=== PATIENT | male | born 1955 | race Caucasian/White ===

== ENCOUNTER 2022-06-15 12:34 | Inpatient (IN) | payer MEDICARE, SELFPAY ==
[2022-06-15 12:36] VITALS: BP 130/88; PULSE 97; RESP 22; TEMP 36.2; O2SAT 98; BMI 24.0
--- NOTE | 2022-06-15 13:20 | EDS_ITS ---
HPI History of Present Illness Chief Complaint: Substance Abuse Informant: patient and friend Narrative Narrative: Here for alcohol assistance. He is here with peer from the [employer] program. Reports he been drinking alcohol since he is 13 years old. Current alcohol of choice is whiskey however states he will drink anything get his hands on. He went through [employer] 6 weeks ago was there for 2 weeks. He relapsed since then. Last drink was this morning. Wakes up with morning tremors resolved with alcohol. Denies any withdrawal seizures. Reports 2 weeks ago had vomiting over the weekend had blood in it resolved since then. Denies abdominal pain. Denies bloody stools. Also reports intermittent meth use last used 2 days ago, states did not have a problem with meth. Denies suicidal homicidal ideations. Prior similar symptoms: Yes PFSH PFSH Medical History Alcoholism Atrial fibrillation COPD (chronic obstructive pulmonary disease) Hypertension Myocardial infarct Sleep apnea Smoker Home Medications aspirin 81 mg tablet,delayed release 81 mg PO DAILY 06/15/22 [History Last Taken Unknown] atorvastatin 10 mg tablet 10 mg PO DAILY cholesterol 06/15/22 [History Last Taken Unknown] carvedilol 6.25 mg tablet 6.25 mg PO BID 06/15/22 [History Last Taken Unknown] diltiazem HCl 120 mg tablet 120 mg PO DAILY 06/15/22 [History Last Taken Unknown] losartan 25 mg tablet 25 mg PO DAILY 06/15/22 [History Last Taken Unknown] pantoprazole 40 mg tablet,delayed release 40 mg PO BID GERD 06/15/22 [History Last Taken Unknown] sucralfate 1 gram tablet 1 g PO ACHS 06/15/22 [History Last Taken Unknown] thiamine HCl (vitamin B1) 100 mg tablet (Vitamin B-1) 100 mg PO DAILY 06/15/22 [History Last Taken Unknown] topiramate 25 mg tablet 75 mg PO BID 06/15/22 [History Last Taken Unknown] Allergy/AdvReac Type Severity Reaction Status Date / Time No Known Allergies Allergy Verified 06/15/22 12:35 Family History (Updated 06/15/22 @ 13:[address] Jeronimo Zacarias DO) Other Alcoholism Surgical History (Updated 06/15/22 @ 15:28 by Melida Gaytan) H/O exploratory laparotomy History of cholecystectomy History of shoulder surgery Social History (Updated 06/15/22 @ 13:[address] Jeronimo Zacarias DO) Smoking Status: Heavy Smoker (>10/day) alcohol intake: current substance use type: methamphetamine ROS ROS ED Constitutional Constitutional ED: Denies chills, fever(s) or sweats Eyes Eyes: Denies change in vision ENT ENT ED: Denies dysphagia or sore throat Cardiovascular Cardiovascular: Denies chest pain, leg edema, palpitations or racing heartbeat Respiratory/Chest Respiratory/Chest: Denies cough, dyspnea or dyspnea on exertion Gastrointestinal Gastrointestinal: Reports nausea; Denies abdominal pain, diarrhea or vomiting Genitourinary Genitourinary ED: Denies dysuria, hematuria or urinary frequency Musculoskeletal Musculoskeletal: Denies back pain, extremity pain or neck pain Integumentary Denies rash or wounds Neurologic Neurologic: Denies headache(s), paresthesias or weakness Psychiatric Psychiatric: Denies suicidal ideation or suicidal thoughts EXAM Physical Exam Const Vital Signs: 06/15/22 12:36 Temperature 97.1 F L Temperature Source Temporal Pulse Rate 97 Respiratory Rate 22 H Blood Pressure 130/88 H Blood Pressure Mean 102 Pulse Ox 98 Oxygen Delivery Method Room Air Constitutional Narrative: Nontoxic. General Appearance ED: NAD HEENT Reports moist mucous membranes normocephalic and atraumatic Eyes PERRL, EOMs intact bilaterally and conjunctivae normal General Eye ED: Yes normal appearance of both eyes Neck no lymphadenopathy and supple General: Negative for tenderness Chest Wall Chest: Negative for tenderness Resp normal respiratory effort and normal air movement Effort and Inspection: symmetric chest movement; Negative for respiratory distress Cardio regular rate, regular rhythm and no murmurs Peripheral Pulses: pulses 2+ throughout GI normal to inspection, nondistended, normoactive bowel sounds and non-tender Palpation: Negative for guarding or rebound tenderness present Back/Spine no CVA tenderness and no thoracic nor lumbar tenderness Extremity normal to inspection General Extremety ED: Negative for edema or tenderness General Extremity: Negative for edema Neuro oriented x3 and no sensory deficits noted Sensorium / Orientation: awake and alert Skin no rashes or lesions noted and no wounds MDM MDM MDM Narrative Medical decision making narrative: Patient nontoxic vital signs stable here for alcohol assistance. Current symptoms is nausea there is no tremors. We will get medical clearance labs, will give IV Zofran. This is pending. I spoke with hospitalist Dr. Zacarias for admission for alcohol assistance. 1500: Nursing with difficulty obtaining IV access. Lab was able to draw blood. I placed an ultrasound guided 20-gauge IV left upper arm. Patient be admitted for further management. Nicotine patch was ordered. Lab Data Attestation: I reviewed the patient's lab results. Discharge Plan Dx/Rx/DC Orders Clinical Impression: Alcohol dependence, Nausea, History of methadone use Disposition Disposition: Acute Care [facility] Discharge Date/Time: 06/15/22 15:13
--- NOTE | 2022-06-15 13:36 | HP.PCM.HOS_ITS ---
HPI - General General Date of Service: 06/15/22 Chief Complaint: alcohol withdrawal HPI Narrative MOE GRADY, is a 67 M who presents seeing treatment for acute alcohol drawl. Patient's last drink was this morning. Since his last drink, he has been having some nausea. Patient has been drinking since he was 13 years old. He drinks at least a bottle of liquor per day sometimes more think it the money to pay for it. Patient, about a month ago, was involved in a program in [facility] called [facility]. Patient was in multi stages of the program and was in the stabilization program where he either left on his own or graduated from. Immediately leaving, however, he resumed drinking alcohol again. Patient is here with the liaison from [facility], and feel that given patient's history and amount of alcohol that he drinks that stabilization would be most appropriate before he can get involved in a program with them again. [facility] Medical History (Updated 06/15/22 @ 13:[address] Jeronimo Zacarias DO) Alcoholism Allergy/AdvReac Type Severity Reaction Status Date / Time No Known Allergies Allergy Verified 06/15/22 12:35 Family History (Updated 06/15/22 @ 13:[address] Jeronimo Zacarias DO) Other Alcoholism Surgical History (Updated 06/15/22 @ 13:[address] Jeronimo Zacarias DO) H/O exploratory laparotomy Social History (Updated 06/15/22 @ 13:[address] Jeronimo Zacarias DO) Smoking Status: Heavy Smoker (>10/day) alcohol intake: current substance use type: methamphetamine ROS ROS Narrative Patient states that he has lost weight over time. Does have a chronic ventral hernia related with his exploratory laparotomy in the past. Today it was 210 pounds at 1 point and now is down to 82 pounds. All review of systems were negative except as mentioned above in the history of present illness and the other review of systems. Vital Signs Vital Signs Vital Signs: 06/15/22 12:36 Temperature 36.2 C L Temperature Source Temporal Pulse Rate 97 Respiratory Rate 22 H Blood Pressure 130/88 H Blood Pressure Mean 102 Pulse Ox 98 Oxygen Delivery Method Room Air Weight Weight: 82.5 kg Body Mass Index (BMI) 24.0 Physical Exam Const alert and no apparent distress Constitutional Narrative: Appears much older than stated age. Disheveled appearance. HEENT normocephalic and head/scalp atraumatic Resp normal respiratory effort, no retractions, no use of accessory muscles and clear to auscultation bilaterally Cardio regular rate, regular rhythm, S1 normal heart sound and S2 normal heart sound GI normal to inspection, nondistended, normoactive bowel sounds, soft to palpation, non-tender and non-distended GI Narrative: Ventral hernia that is easily reducible Extremity normal to inspection Neuro oriented x3 Psych affect normal Assessment & Plan Assessment/Plan (1) Alcohol withdrawal: QUALIFIERS: Complication of substance-induced condition: uncomplicated Qualified Code(s): F10.930 - Alcohol use, unspecified with withdrawal, uncomplicated PLAN: I concern for further deterioration such as delirium tremens or alcohol withdrawal seizure. Continue with thiamine and folate. Phenobarbital taper Addiction medicine to see Tentative plan is for the patient to go to [facility] program in [place]. I spoke to the liaison at bedside and he is unsure if there is any opening in the residential program but it may be some intensive outpatient counseling the patient may require care. Will wait on our addiction liaison to further facilitate. (2) Protein calorie malnutrition: PLAN: Patient states that he weighs 82 pounds. I think he mistook the information of being 82.5 kg as pounds. Patient currently does not appear to be that gaunt. Though he is thin and malnourished in appearance. Will consult nutrition for further input. Patient does have a very chronically medically ill appearance this is most likely due to his chronic alcohol and tobacco abuse. We will check a TSH. PLAN: Plan VTE prophylaxis: Given the patient's chronically ill appearance, will place him enoxaparin for VTE prophylaxis. Charges/Coding Visit Charges Inpatient E&M: 06569 Init Hosp L2
--- NOTE | 2022-06-15 14:10 | CM.ED ---
Social Work Consult: Substance Abuse Referral source: Self referral due to reason for ED visit. This social welfare research worker met with patient in room. Introduced self and social welfare research worker role. Patient agreeable to speak with this social welfare research worker. Patient peer support from Thelma, Cory Davila ([phone]) present. Patient agreeable to speak with this social welfare research worker with Cory present. Patient reports to be seeking medical management of withdrawal symptoms. Patient with history of going through detox with [facility] but was referred to [facility] for medical management of withdrawal symptoms as patient required medical treatment last attempt to detox. Patient plans to follow up with Thelma at discharge and reports that Cory will be patient transportation. Patient reports substance of choice as alcohol and meth. Patient verbally agreeing to [facility] contract. Active support and listening provided. Telephone call to Addiction Therapist, Sabine. This social welfare research worker updated Sabine on above information and patient admission to acute care unit. Tez HEIN, HASMUKH-S
[2022-06-15] MEDS: Ondansetron ODT 4 MG Tablet PO (14:27)
[2022-06-15 14:54] LABS: Absolute Lymphocyte Count 1.27 X10^3/uL (0.83-4.51); Absolute Neutrophil Count 2.8 X10^3/uL (2.0-7.7); Basophil# 0.06 X10^3/uL; Basophil% 1.2 % (0-1); Eosinophil# 0.16 X10^3/uL; Eosinophils% 3.2 % (0-5); Hematocrit 41.4 % (40-54); Hemoglobin 13.6 g/dL (13.0-16.5); Lymphocyte # 1.27 X10^3/ul (0.83-4.51); Lymphocyte % 25.5 % (19-41); Mean Corp Hgb Conc 32.9 g/dL (32-36); Mean Corpuscular Hgb 31.3 pg (27.0-32.0); Mean Corpuscular Volume 95.4 fL (80-94); Mean Platelet Vol. 9.8 fl (6.2-12.0); Monocyte% 14.1 % (0-10); NRBC Flagged by Analyzer 0 % (0-5); Neutrophil # 2.77 X10^3/uL (2.7-7.7); Neutrophil % 55.6 % (47-70); Platelet Count 195 K/mm3 (150-450); RBC Distribution Width CV 15.3 % (11.6-14.6); RBC Distribution Width SD 53.3 fl (35.1-43.9); Red Blood Count 4.34 M/mm3 (4.6-6.2)
[2022-06-15 15:05] LABS: Anion Gap 9 (5-15); BUN 10 mg/dL (7-18); BUN/Creat Ratio 9.4 RATIO (10-20); Calcium,Total 8.3 mg/dL (8.5-10.1); Chloride 108 mmol/L (98-107); Creatinine, Serum 1.06 mg/dL (0.70-1.30); EST Glomerular Filtration Rate 75 mL/min (>60); Est Glom Filt Rate - Afr Amer 90 mL/min (>60); Estimated Creatinine Clearance 78.52 ml/min; Glucose 72 mg/dL (74-106); Potassium 3.8 mmol/L (3.5-5.1); Sodium Level 141 mmol/L (136-145)
[2022-06-15 15:06] VITALS: BP 156/75; PULSE 63; RESP 18; TEMP 36.1; O2SAT 100
[2022-06-15 15:09] VITALS: BP 156/75; PULSE 70; RESP 18; TEMP 36.1; O2SAT 99
[2022-06-15 15:21] LABS: Thyroid Stim Hormone (TSH) 0.46 uIU/mL (0.358-3.74)
[2022-06-15 15:30] VITALS: BP 164/71; PULSE 75; RESP 20; TEMP 36.2; O2SAT 100; BMI 22.4
[2022-06-15 15:41] LABS: Amphetamine Urine VISTA NEGATIVE (<1000 ng/mL); Barbiturate Urine VISTA POSITIVE (< 200 ng/mL); Benzodiazepine Urine VISTA NEGATIVE (< 200 ng/mL); Cocaine Urine VISTA NEGATIVE (< 300 ng/mL); Ecstacy Urine VISTA NEGATIVE (< 500 ng/mL); Methadone Urine VISTA NEGATIVE (< 300 ng/mL); PCP Urine VISTA NEGATIVE (< 25 ng/mL); THC Urine VISTA NEGATIVE (< 50 ng/mL); Vista UDS pH Range 4
[2022-06-15 16:18] LABS: AST(SGOT) 15 U/L (15-37); Alanine Aminotransfer ALT/SGPT 22 U/L (16-61); Albumin, Serum 3.1 g/dL (3.2-5.0); Alkaline Phosphatase 92 U/L (45-117); Bilirubin, Direct 0.22 mg/dL (0.00-0.30); Globulin 3.3 g/dL (2.2-4.2); Protein, Total 6.4 g/dL (6.4-8.2)
[2022-06-15] MEDS: Phenobarbital 32.4 MG Tablet 64.8 MG PO ×2 (16:19→20:27)
[2022-06-15] MEDS: Gabapentin 300 MG Capsule PO (16:20)
[2022-06-15] MEDS: Ibuprofen 600 MG Tablet PO (16:20)
[2022-06-15 16:22] VITALS: O2SAT 99
[2022-06-15] MEDS: 0.9% Saline Lock 10 ML Syringe IV (17:59)
[2022-06-15 20:24] VITALS: BP 135/64; PULSE 91; RESP 18; TEMP 36.8; O2SAT 98
[2022-06-16] MEDS: Phenobarbital 32.4 MG Tablet 64.8 MG PO ×7 (00:54→23:42)
[2022-06-16] MEDS: Acetaminophen 500 MG Tablet PO ×3 (00:54→23:42)
[2022-06-16] MEDS: hydrOXYzine PAM 25 MG Capsule 50 MG PO ×3 (00:54→20:24)
[2022-06-16 00:56] VITALS: BP 142/78; PULSE 87; RESP 18; TEMP 36.8; O2SAT 96
[2022-06-16] MEDS: traZODone 100 MG Tablet PO ×2 (01:01→20:24)
[2022-06-16 04:57] VITALS: BP 127/52; PULSE 79; RESP 18; TEMP 36.8; O2SAT 96
[2022-06-16 08:58] VITALS: BP 128/54; PULSE 70; RESP 16; TEMP 36.5; O2SAT 98
[2022-06-16] MEDS: Enoxaparin 40 MG/0.4 ML Syringe SC (09:08)
[2022-06-16] MEDS: Thiamine Hydrochloride 100 MG Tablet PO (09:08)
[2022-06-16] MEDS: Folic Acid 1 MG Tablet PO (09:08)
--- NOTE | 2022-06-16 12:06 | ADDICTION ---
This typewriter mechanic met with PT to conduct ASAM, MSE, AUDIT, DUDIT assessments and to plan for d/c. PT A+Ox4 and participated actively. All assessments completed and placed in PT's chart. PT plans to f/u with [employer] [facility] for follow-up Outpatient treatment services. [facility] will provide transportation post d/c from [facility]. There is a number in his chart.
[2022-06-16 15:00] VITALS: BP 116/78; PULSE 72; RESP 18; TEMP 36.4; O2SAT 94
[2022-06-16] MEDS: Gabapentin 300 MG Capsule PO (16:31)
[2022-06-16] MEDS: Ibuprofen 600 MG Tablet PO (16:44)
--- NOTE | 2022-06-16 19:03 | PCM.PN.HOSP ---
Subjective Subjective Patient was seen and examined today, he was seen by addiction director of social services today and is agreed to go into a detox program at the time of discharge from the hospital. Patient does not complain of excessive tremor or nervousness today, he states that he has a chronic medical problem (hypertension) but he has not taken any medication for this in quite a while. I noticed today that the patient's blood pressure is in the normal range and the patient is not receiving any blood pressure medication at this time. I have elected not to start any antihypertensives on him at this time, I will reevaluate him tomorrow. Objective Data Objective Data Vital Signs: Vital Signs Temp Pulse Resp BP Pulse Ox O2 Del Method 97.5 F L 72 18 116/78 94 Room Air 06/16/22 15:00 06/16/22 15:00 06/16/22 15:00 06/16/22 15:00 06/16/22 15:00 06/16/22 15:00 Oxygen Delivery Method Room Air Weight: 77.3 kg Body Mass Index (BMI) 22.4 Intake & Output: Intake and Output for Last 24 Hours 06/14/22 06/15/22 06/16/22 23:59 23:59 23:59 Intake Total 480 / 480 880 / 880 Balance 480 / 480 880 / 880 Medical Nutrition Assessment Dietitian: Malnutrition Criteria Met Start: 06/15/22 17:46 Freq: Status: Active Protocol: Document 06/15/22 17:47 RMA (Rec: 06/15/22 17:47 RMA [id number]) Nutrition Malnutrition Evidence of Malnutrition Exists Yes Malnutrition (severe): Social/Behavioral/ Environmental Evidenced By Suboptimal Energy Intake ( Severe),Weight Loss (Severe) Clinical Problem Chronic Disease or Condition Related Malnutrition Etiology Severe protein-calorie malnutrition in the context of social circumstance related to alcohol abuse and poor PO/ nutrient density Signs/Symptoms as evidenced by 6% wt loss x past 1 month and intake meeting less than 50% estimated nutrition needs Status Active Problem Recommendation Dietitian Recommendations/Changes Continue regular diet with 3 snacks per day as ordered. Will add ensure compact TID w/ meals. Additional ONS as needed once intake established with meals. Lab / Micro Data Result Diagrams: 06/15/22 14:38 06/15/22 14:38 Physical Exam Const alert, oriented x3, no apparent distress and healthy appearing General Appearance: cooperative, well kempt and well developed Orientation / Consciousness: awake, oriented to person, oriented to place and oriented to time HEENT normocephalic and moist oral mucous membranes Eyes PERRL, EOMs intact bilaterally and conjunctivae normal Neck supple, no JVD, thyroid normal and no carotid bruits General: trachea midline Resp normal respiratory effort and clear to auscultation bilaterally Auscultation: Negative for rales, rhonchi or wheezes Cardio regular rate, regular rhythm, no murmurs, no rub and no gallops GI normal to inspection, nondistended, normoactive bowel sounds, soft to palpation, non-tender and non-distended Extremity no clubbing, cyanosis or edema Skin no rashes or lesions noted General Skin Exam: no breakdown Neuro oriented x3, CN's II-XII intact bilaterally, no focal motor deficits and no sensory deficits noted Sensorium / Orientation: awake and alert Speech: speech normal Psych affect normal Assessment & Plan Assessment/Plan (1) Alcohol dependence: PLAN: Plan #1 acute alcohol withdrawal-patient does not appear to be symptomatic at this time, he is not tremulous and he does not appear anxious. Continue phenobarb taper at this time, patient will do an outpatient detox program when he is released from the hospital. #2 essential hypertension-patient's blood pressure medications have been held at this time, he is not taking them chronically at home according to him, I will observe his blood pressure while he is hospitalized here and place him back on blood pressure medicine if needed. #3 chronic alcoholism-complicates care, management, recovery, and prognosis #4 history of hyperlipidemia-patient takes no medications now for hyperlipidemia, he will need to follow-up with his family physician after his discharge from the hospital. Charges/Coding Visit Charges Inpatient E&M: 40166 Subs Hosp L2
[2022-06-16 20:22] VITALS: BP 134/57; PULSE 86; RESP 18; TEMP 36.7; O2SAT 95
[2022-06-16 23:38] VITALS: BP 111/43; PULSE 85; RESP 18; TEMP 36.8; O2SAT 92
[2022-06-16] MEDS: Loperamide 2 MG Capsule PO (23:42)
[2022-06-17] MEDS: Phenobarbital 32.4 MG Tablet 64.8 MG PO ×4 (04:55→16:19)
[2022-06-17 04:57] VITALS: BP 134/64; PULSE 79; RESP 18; TEMP 36.6; O2SAT 97
[2022-06-17] MEDS: Folic Acid 1 MG Tablet PO (08:38)
[2022-06-17] MEDS: Thiamine Hydrochloride 100 MG Tablet PO (08:39)
[2022-06-17] MEDS: Enoxaparin 40 MG/0.4 ML Syringe SC (08:39)
[2022-06-17 09:27] VITALS: BP 138/87; PULSE 80; PULSE 86; RESP 18; TEMP 36.7; O2SAT 99
[2022-06-17] MEDS: Gabapentin 300 MG Capsule PO ×2 (12:48→22:09)
[2022-06-17] MEDS: Ibuprofen 600 MG Tablet PO (12:48)
[2022-06-17 13:23] VITALS: BP 133/62; PULSE 77; RESP 18; TEMP 36.7; O2SAT 94
--- NOTE | 2022-06-17 15:36 | CHAPLAIN ---
Type of Pastoral Visit ___ Initial Visit _x__ Follow-up Visit ___ On-call Visit ___ General Patient Visit ___ Spiritual Assessment ___ Family Conference ___ Bereavement ___ Rapid Response ___ Code Blue ___ Other (describe below) Pastoral Care Referral From _x__ Patient ___ Family ___ Nurse ___ Physician ___ Car Loader ___ Stage Settings Painter ___ Other (describe below) Sacrament/Intervention _x__ Active listening ___ Anointing ___ Protestant ___ Bereavement ___ Communion _x__ Jamila exploration ___ _x__ Life review _x__ Prayer ___ Reconciliation ___ Sacrament of Sick _x__ Supportive presence ___ Wedding ___ Other (describe below) Pastoral Comments after just a brief introduction yesterday, today the patient is able to talk more with this dry kiln burner; pt states that today he is not feeling as well as yesterday; pt is wondering about his next step of action and whether he can go to a rehab; referred him to addiction counselor who would have answers; pt talks about a long history of drinking and addiction and admits that he is needing help to overcome; pt gives some early life review; pt speaks of God and jehovah's witness as the place where I need to get help; pt states that he lives across the street from a jehovah's witness and that he will seek help there; pt welcomes prayer for his support today; pt welcomes presence of this dry kiln burner for emotional support as well
[2022-06-17 16:00] VITALS: O2SAT 95
[2022-06-17] MEDS: Acetaminophen 500 MG Tablet PO ×2 (16:24→22:09)
[2022-06-17] MEDS: hydrOXYzine PAM 25 MG Capsule 50 MG PO (16:24)
[2022-06-17 18:00] VITALS: BP 133/88; PULSE 74; RESP 18; TEMP 36.7; O2SAT 95
--- NOTE | 2022-06-17 18:06 | PN.HOSP_ITS ---
Subjective Subjective Patient was seen and examined today, he denies any symptoms of alcohol withdrawal at this time, I have elected to change the patient's phenobarb taper at this time, I will plan on possibly discharging the patient in the morning if he remains medically stable. I talked with his transportation who is going to be picking him up tomorrow before noon time to take him home, this transportation is from an outpatient detox/counseling center who he will follow- up with as an outpatient Objective Data Objective Data Vital Signs: Vital Signs Temp Pulse Resp BP Pulse Ox O2 Del Method 98.0 F 77 18 133/62 H 95 Room Air 06/17/22 13:23 06/17/22 13:23 06/17/22 13:23 06/17/22 13:23 06/17/22 16:00 06/17/22 16:00 Oxygen Delivery Method Room Air Weight: 77.3 kg Body Mass Index (BMI) 22.4 Intake & Output: Intake and Output for Last 24 Hours 06/15/22 06/16/22 06/17/22 23:59 23:59 23:59 Intake Total 480 / 480 880 / 880 600 / 600 Balance 480 / 480 880 / 880 600 / 600 Medical Nutrition Assessment Dietitian: Malnutrition Criteria Met Start: 06/15/22 17:46 Freq: Status: Active Protocol: Document 06/15/22 17:47 RMA (Rec: 06/15/22 17:47 RMA [id number]) Nutrition Malnutrition Evidence of Malnutrition Exists Yes Malnutrition (severe): Social/Behavioral/ Environmental Evidenced By Suboptimal Energy Intake ( Severe),Weight Loss (Severe) Clinical Problem Chronic Disease or Condition Related Malnutrition Etiology Severe protein-calorie malnutrition in the context of social circumstance related to alcohol abuse and poor PO/ nutrient density Signs/Symptoms as evidenced by 6% wt loss x past 1 month and intake meeting less than 50% estimated nutrition needs Status Active Problem Recommendation Dietitian Recommendations/Changes Continue regular diet with 3 snacks per day as ordered. Will add ensure compact TID w/ meals. Additional ONS as needed once intake established with meals. Lab / Micro Data Result Diagrams: 06/15/22 14:38 06/15/22 14:38 Physical Exam Const alert, oriented x3, no apparent distress and healthy appearing General Appearance: cooperative, well kempt and well developed Orientation / Consciousness: awake, oriented to person, oriented to place and oriented to time HEENT normocephalic and moist oral mucous membranes Eyes PERRL, EOMs intact bilaterally and conjunctivae normal Neck supple, no JVD, thyroid normal and no carotid bruits General: trachea midline Resp normal respiratory effort, no retractions, no use of accessory muscles and clear to auscultation bilaterally Auscultation: Negative for rales, rhonchi or wheezes Cardio regular rate, regular rhythm, S1 normal heart sound, S2 normal heart sound, no murmurs, no rub and no gallops GI normal to inspection, nondistended, normoactive bowel sounds, soft to palpation, non-tender and non-distended Extremity no clubbing, cyanosis or edema Skin no rashes or lesions noted General Skin Exam: no breakdown Neuro oriented x3, CN's II-XII intact bilaterally, no focal motor deficits and no sensory deficits noted Sensorium / Orientation: awake and alert Speech: speech normal Psych affect normal Assessment & Plan Assessment/Plan (1) Alcohol dependence: PLAN: Plan #1 acute alcohol withdrawal-patient does not appear to be symptomatic at this time, he is not tremulous and he does not appear anxious. I have elected to stop the patient's phenobarbital taper and place him on phenobarbital twice daily, I will reevaluate him tomorrow for possible discharge to home tomorrow, at that time I will consider whether I want to continue a low dose of phenobarbital for couple of days as an outpatient. #2 essential hypertension-patient's blood pressure medications have been held at this time, he is not taking them chronically at home according to him, I will observe his blood pressure while he is hospitalized here and place him back on blood pressure medicine if needed. #3 chronic alcoholism-complicates care, management, recovery, and prognosis #4 history of hyperlipidemia-patient takes no medications now for hyperlipidemia, he will need to follow-up with his family physician after his d ischarge from the hospital. Charges/Coding Visit Charges Inpatient E&M: 82495 Subs Hosp L2
[2022-06-17 21:55] VITALS: BP 135/57; PULSE 86; RESP 18; TEMP 37.2; O2SAT 96
[2022-06-17] MEDS: traZODone 100 MG Tablet PO (22:09)
[2022-06-18 02:00] VITALS: BP 119/82; PULSE 70; RESP 16; TEMP 36.8; O2SAT 96
[2022-06-18 06:00] VITALS: BP 114/52; PULSE 67; RESP 16; TEMP 36.4; O2SAT 97
[2022-06-18] MEDS: Folic Acid 1 MG Tablet PO (09:11)
[2022-06-18] MEDS: Thiamine Hydrochloride 100 MG Tablet PO (09:11)
[2022-06-18] MEDS: Enoxaparin 40 MG/0.4 ML Syringe SC (09:11)
[2022-06-18] MEDS: Gabapentin 300 MG Capsule PO (09:13)
[2022-06-18] MEDS: Ondansetron 8 MG Tablet PO (09:13)
[2022-06-18] MEDS: Ibuprofen 600 MG Tablet PO (09:13)
[2022-06-18] MEDS: Acetaminophen 500 MG Tablet PO (09:14)
--- NOTE | 2022-06-18 09:35 | DCINST_ITS ---
Discharge Instructions Diet Discharge Diet: No restrictions Activity Discharge Activity: Return to Normal Activity Weight Bearing Status: Full weight bearing Follow Up Care Test Results: Test results from this visit will be discussed in further detail at your follow- up appointment, if applicable. Discharge Plan Admission Admit Date/Time: 06/15/22 13:33 Primary Reason for Your Visit: alcohol withdrawal Attending Provider: Karson Lucio Primary Care Provider: Care Physician,No Primary Consulting Providers: Jeronimo Zacarias Instructions Additional Instructions / Restrictions: Recommend following up with a family practice physician regarding a check up and review of past medication use within 2-3 weeks Recommend you take aspirin 81 mg daily if you have a past history of heart attack Discharge Orders/Prescriptions Prescriptions: Discontinued carvedilol 6.25 mg tablet 6.25 mg PO BID atorvastatin 10 mg tablet 10 mg PO DAILY sucralfate 1 gram tablet 1 g PO ACHS thiamine HCl (vitamin B1) [Vitamin B-1] 100 mg Tablet 100 mg PO DAILY topiramate 25 mg tablet 75 mg PO BID aspirin [Aspirin Low-Strength] 81 mg Tablet,Delayed Release (Dr/Ec) 81 mg PO DAILY diltiazem HCl 120 mg tablet 120 mg PO DAILY pantoprazole 40 mg tablet,delayed release (DR/EC) 40 mg PO BID losartan 25 mg tablet 25 mg PO DAILY Referrals / Follow Up: Care Physician,No Primary [Primary Care Provider] - Disposition Disposition (needs filled in before D/C Order can be placed): Home, Self Care
[2022-06-18 09:39] VITALS: BP 131/65; PULSE 74; RESP 18; TEMP 36.7; O2SAT 95
--- NOTE | 2022-06-18 09:41 | PCM.DC.SUM ---
Providers Date of Admission: 06/15/22 Date of Discharge: 06/18/22 Primary Care Physician: No Primary Care Phys Reason For Visit: ALCOHOL WITHDRAWAL Diagnosis Discharge Diagnosis (1) Alcohol dependence: Status: Acute Code(s): F10.20 - Alcohol dependence, uncomplicated Plan #1 acute alcohol withdrawal #2 essential hypertension #3 chronic alcoholism #4 history of hyperlipidemia #5 suspected oral self administration of hand bleach supervisor during patient's hospitalization Hospital Course Operations None Procedures None Summary of Care Provided Minutes Spent on Discharge: 31 Hospital Course: This 67-year-old white male was admitted to [place] [address] for alcohol detox services after being seen in the emergency room at [facility], orders were placed using the alcohol withdrawal order set and the patient was seen by addiction social and human services assistant. Arrangements were made for outpatient follow-up at a detox facility (not inpatient detox) after the patient was discharged from hospital. Patient had no evidence of DTs during his hospitalization. On 06/18/2022, patient was seen and examined: On examination he appeared in good health and spirits. Vital signs as documented. Skin warm and dry and without overt rashes. Neck without JVD, neck was supple, trachea midline, thyroid was normal. Lungs clear bilaterally, normal air movement was noted. Heart exam notable for regular rhythm, normal sounds and absence of murmurs, rubs or gallops. Abdomen unremarkable and without evidence of organomegaly, masses, or abdominal aortic enlargement. Bowel sounds are present, abdomen is not distended. Extremities nonedematous, no cyanosis was noted, no clubbing was noted. Neuro: Cranial nerves II through XII are grossly intact, no focal motor deficits were noted, sensation to light touch and pinprick intact, motor exam 5/5 throughout. Psych: Patient is alert and oriented x3, he does not appear anxious or depressed, he does not appear agitated. Patient was discharged in stable condition on 06/18/2022. After the patient was discharged, nursing found evidence that the patient had been drinking hand bleach supervisor in his room, there was a large amount of hand bleach supervisor missing from the patient's pump bleach supervisor, there is also noted to be excessive amount of hand bleach supervisor missing from the patient's wall hand bleach supervisor. It was suspected that the patient was intaking hand bleach supervisor orally due to its high ethanol level (70%). Medical Records Data Medical Nutrition Assessment Dietitian: Malnutrition Criteria Met Start: 06/15/22 17:46 Freq: Status: Active Protocol: Document 06/15/22 17:47 RMA (Rec: 06/15/22 17:47 RMA [id number]) Nutrition Malnutrition Evidence of Malnutrition Exists Yes Malnutrition (severe): Social/Behavioral/ Environmental Evidenced By Suboptimal Energy Intake ( Severe),Weight Loss (Severe) Clinical Problem Chronic Disease or Condition Related Malnutrition Etiology Severe protein-calorie malnutrition in the context of social circumstance related to alcohol abuse and poor PO/ nutrient density Signs/Symptoms as evidenced by 6% wt loss x past 1 month and intake meeting less than 50% estimated nutrition needs Status Active Problem Recommendation Dietitian Recommendations/Changes Continue regular diet with 3 snacks per day as ordered. Will add ensure compact TID w/ meals. Additional ONS as needed once intake established with meals. Weight / BMI Weight Weight: 77.3 kg Body Mass Index (BMI) 22.4 ABG / Lab / Microbiology Data Result Diagrams: 06/15/22 14:38 06/15/22 14:38 D/C Instructions Discharge Diet: No restrictions Weight Bearing Status: Full weight bearing Meaningful Use Info Meaningful Use Diagnoses (Choose all that apply): None applicable Discharge Plan Admission Admit Date/Time: 06/15/22 13:33 Primary Reason for Your Visit: alcohol withdrawal Attending Provider: Karson Lucio Primary Care Provider: Katie Kelly Primary Consulting Providers: Jeronimo Zacarias Instructions Additional Instructions / Restrictions: Recommend following up with a family practice physician regarding a check up and review of past medication use within 2-3 weeks Recommend you take aspirin 81 mg daily if you have a past history of heart attack Discharge Orders/Prescriptions Prescriptions: Discontinued carvedilol 6.25 mg tablet 6.25 mg PO BID atorvastatin 10 mg tablet 10 mg PO DAILY sucralfate 1 gram tablet 1 g PO ACHS thiamine HCl (vitamin B1) [Vitamin B-1] 100 mg Tablet 100 mg PO DAILY topiramate 25 mg tablet 75 mg PO BID aspirin [Aspirin Low-Strength] 81 mg Tablet,Delayed Release (Dr/Ec) 81 mg PO DAILY diltiazem HCl 120 mg tablet 120 mg PO DAILY pantoprazole 40 mg tablet,delayed release (DR/EC) 40 mg PO BID losartan 25 mg tablet 25 mg PO DAILY Referrals / Follow Up: Care Physician,No Primary [Primary Care Provider] - Disposition Disposition (needs filled in before D/C Order can be placed): Home, Self Care Charges/Coding Visit Charges Inpatient E&M: 26429 Disch Hosp
--- NOTE | 2022-06-18 12:08 | NURSING ---
[employer] called @ [phone], they have no contact info for dickson, updated that pt probably drank a significant quantity of hand eye technician, they are trying to reach tow motor driver bran @[phone]
== END 2022-06-18 10:57 | disposition home or self-care (01) | DRG 896 ==
LOC: ED 14:37 → MS3 14:39
PROVIDERS: Emergency Provider Emergency Medicine; Visit Provider Internal Medicine
DX: F10.239 Alcohol dependence with withdrawal, unspecified (principal); E43 Unspecified severe protein-calorie malnutrition; T51.0X1A Toxic effect of ethanol, accidental (unintentional), initial encounter; I10 Essential (primary) hypertension; E78.5 Hyperlipidemia, unspecified; F15.90 Other stimulant use, unspecified, uncomplicated; F17.200 Nicotine dependence, unspecified, uncomplicated; Y90.9 Presence of alcohol in blood, level not specified; Z68.22 Body mass index [BMI] 22.0-22.9, adult; Z79.899 Other long term (current) drug therapy
CPT/HCPCS: 36415; 80048; 80076; 80307; 82077; 84443; 85025; 97802; 99284; 99406; A4216; J2405